=== PATIENT | female | born 1980 | race Caucasian/White ===

== ENCOUNTER 2019-07-04 05:33 | Inpatient (IN) | payer BC ==
[~2019-07-04 05:33] MED LIST: Buffered Lidocaine 1% SYRIN* 1 ML/SYRINGE INTRADERM ONE
[2019-07-04] MEDS ORDERED: Lactated Ringers 1000 ML Bag* 1,000 ML IV SCH (06:00)
[2019-07-04] MEDS ORDERED: Famotidine IV* 10 MG/ML 2 ML (20 mg) IV ONE (06:00)
[2019-07-04] MEDS ORDERED: Gabapentin CAP(*) 300 MG PO ONE (06:00)
[2019-07-04] MEDS ORDERED: Acetaminophen TAB* 325 MG PO ONE (06:00)
[2019-07-04] MEDS ORDERED: ceFAZolin 2 GM PREMIX in ORs 2 GM/50 ML BAG ONE (06:17)
[2019-07-04] MEDS ORDERED: Acetaminophen TAB* 325 MG ONE (06:17)
[2019-07-04] MEDS ORDERED: Gabapentin CAP(*) 300 MG ONE (06:17)
[2019-07-04] MEDS ORDERED: Buffered Lidocaine 1% SYRIN* 1 ML/SYRINGE INTRADERM ONE (06:18)
[2019-07-04] MEDS ORDERED: Famotidine IV* 10 MG/ML 2 ML (20 mg) ONE (06:18)
[2019-07-04] MEDS ORDERED: Bacitracin INJECTION* 50,000 UNITS ONE (06:40)
[2019-07-04] MEDS ORDERED: Thrombin 5,000 UNITS* 1 APPLIC KIT - topical use - TOPICAL ONE (06:40)
[2019-07-04] MEDS ORDERED: Bupivacaine 0.25% EPI 200,000* 30 ML SDV ONE (06:40)
[2019-07-04] MEDS ORDERED: Artificial Tear OPHTH.OINT* 3.5 GM ONE (07:09)
[2019-07-04] MEDS ORDERED: Propofol* 500 MG/50 ML BTL ONE ×2 (07:12→09:17)
[2019-07-04] MEDS ORDERED: Propofol* 10 MG/ML 20 ML BTL ONE (07:12)
[2019-07-04] MEDS ORDERED: Dexamethasone IV* 4 MG/ML 1 ML (4 MG) ONE ×2 (07:12→08:10)
[2019-07-04] MEDS ORDERED: Ondansetron INJ* 2 MG/ML VIAL ONE (07:12)
[2019-07-04] MEDS ORDERED: Lidocaine 2% PF * 5 ML VIAL ONE (07:12)
[2019-07-04] MEDS ORDERED: Phenylephrine 10 MG/ML VIAL* 1 ML VIAL ONE (07:12)
[2019-07-04] MEDS ORDERED: Sodium Chloride 0.9%* 10 ML ONE (07:12)
[2019-07-04] MEDS ORDERED: KETAMINE HCL* 50 MG/ML 10 ML VIAL ONE (07:13)
[2019-07-04] MEDS ORDERED: Cisatracurium* 2 MG/ML MDV 5 ML ONE (07:13)
[2019-07-04] MEDS ORDERED: fentaNYL* 50 MCG/ML 2 ML VIAL (100 MCG VIAL) ONE ×3 (07:13→11:45)
[2019-07-04] MEDS ORDERED: Midazolam* 1 MG/ML 10 ML VIAL (10 MG) ONE (07:14)
[2019-07-04] MEDS ORDERED: Remifentanil* 2 MG VIAL ONE ×3 (07:14→10:38)
[2019-07-04] MEDS ORDERED: Naloxone* 0.4 MG/ML 1 ML VIAL IV PRN (11:24)
[2019-07-04] MEDS ORDERED: Ondansetron INJ* 2 MG/ML VIAL IV PRN (11:24)
[2019-07-04] MEDS ORDERED: fentaNYL* 50 MCG/ML 5 ML VIAL (250 MCG VIAL) ONE (12:19)
[2019-07-04] MEDS: fentaNYL* 50 MCG/ML 2 ML VIAL (100 MCG VIAL) IV PRN ×3 (12:22→12:40)
[2019-07-04] MEDS: Lactated Ringers 1000 ML Bag* 1,000 ML IV SCH (13:24)
[2019-07-04] MEDS: HYDROcodone/ACETAMIN 5-325 MG* 1 TAB PO PRN ×2 (14:24→18:23)
--- NOTE | 2019-07-04 18:08 | OP ---
DATE OF OPERATION: 07/04/19 - ROOM #340 DATE OF : 78 SURGEON: Berta Pantoja MD [employer] ATTENDANT: YRIS Montilla. The case was done with the assistance of surgical PA because of the complexity of the case. ANESTHESIA: General. PRE-OP DIAGNOSES: 1. Degenerative disk disease. 2. Herniated nucleus pulposus. 3. Myelopathy. POST-OP DIAGNOSES: 1. Degenerative disk disease. 2. Herniated nucleus pulposus. 3. Myelopathy. OPERATIVE PROCEDURE: The patient underwent anterior cervical diskectomy and fusion at C5-6 and C6-7 with PEEK interbody cage, DBX, autologous local bone graft, plate and screws with intraoperative monitoring. ESTIMATED BLOOD LOSS: 20 cc. COMPLICATIONS: None. SUMMARY: The patient is a very pleasant 39-year-old female with complaints of neck pain radiating to mostly the right upper extremity, signs of myelopathy, and MRI findings consistent with a very large rightward C6-7 disk herniation and a smaller rightward disk herniation at right C5-6. The patient after failing conservative treatment modalities was offered the option of surgical intervention in the form of anterior cervical diskectomy and fusion. After explaining the expectations, limitations, and possible complications to the patient and also the patient's significant other with complications including, but not limited to bleeding, infection, risk of injury to adjacent structures, coma, paralysis, , need for additional procedures, anesthesia risks, stroke , blindness, cancer, instability, hardware failure, adjacent level disease, pseudo-arthrosis, recurrent laryngeal nerve injury, Genesis syndrome, need for tracheostomy or gastrostomy; the patient was agreeable to proceed with surgery and informed consent was obtained. The patient understood that her condition may not improve and in fact may get worse after surgery and that she may require additional procedures in the future. She also understood that the goal of the surgery is to stabilize her condition and her myelopathy may not improve. She also understood that operative plan may be modified according to intraoperative findings and conditions and that the procedure may be abandoned or done in more than 1 stage. She also understood that she may require prolonged hospitalization, prolonged ICU stay, gastrostomy or tracheostomy, or prolonged rehabilitation. DESCRIPTION OF PROCEDURE: The patient was brought to the operating room and was placed under general anesthesia by the anesthesia team. She was carefully positioned supine on the Adan table and all bony prominences were meticulously padded. Her skin was prepped and draped in the standard fashion. After appropriate surgical pause and patient identification, a small transverse incision towards the right side at the level of C6 vertebral body was marked on the skin with the assistance of intraoperative fluoroscopic imaging. The skin was infiltrated with local anesthetic and #10 surgical blade was used to incise the skin. The incision was carried deeply with Bovie cautery and the skin was undermined with tenotomy scissors. Self-retaining retractors were introduced into the field and the platysma muscle was gently elevated and divided with sharp dissection. The medial border of the sternocleidomastoid was then identified and plane between the medial border of the sternocleidomastoid as well as the medial structures was gently developed with sharp and blunt dissection. The prevertebral fascia was identified and was gently dissected and the anterior part of the vertebral bodies was exposed. Intraoperative fluoroscopic imaging confirmed appropriate surgical levels and Hamill pins were placed at the C5, C6, and C7 vertebral bodies. Self-retaining retractors were introduced into the field and a diskectomy was performed at C6-7 level after incising the annulus fibrosus with #15 surgical blade. The diskectomy was carried out with a series of pituitary rongeurs, Kerrison punches, curettes, and high-speed drill. A significant amount of disk herniation was identified as excepted from preoperative monitoring. Under microscopic magnification, the fragments of the disk were gently removed relieving the pressure on the thecal sac and at the end of the diskectomy, the thecal sac and the foramina were found to be free of any pressure phenomenon. After copious irrigation, confirmation of meticulous hemostasis and meticulous inspection, an 8- mm PEEK interbody cage was inserted after being filled with locally harvested bone graft during the diskectomy part of the procedure as well as DBX. The Hamill pin was removed from the C7 vertebral body and the retractors were repositioned to perform a diskectomy at the C5-6 level. Every time that the self-retaining retractors were introduced into the field, the Apfelbaum maneuver was performed. The diskectomy was carried out as well as preparation of the disk space and another 8-mm PEEK interbody cage filled with locally harvested bone graft and DBX was inserted. The Hamill pins were then removed and a 37-mm [employer] anterior plate was secured in place with 13-mm screws. Intraoperative fluoroscopic imaging confirmed excellent placement of all hardware. After copious irrigation, confirmation of meticulous hemostasis and meticulous inspection, the self-retaining retractors were removed from the field and the wound was closed by layers. 2-0 interrupted Vicryl sutures were used to approximate the platysma and the subcutaneous tissues while the skin was approximated with 4-0 subcutaneous suture. The skin was then covered with Dermabond and sterile sponges. At the end of the procedure, all counts were reported to be correct. The patient remained hemodynamically stable throughout the case. Intraoperative electrophysiological monitoring remained stable throughout the case. The patient was then extubated and was transferred to Recovery in excellent condition. The case was done with the assistance of surgical PA because of the complexity of the case. [id number]/[facility] #: [id number] RASHEEDA
[2019-07-04] MEDS ORDERED: oxyCODONE/Acetamin 5/325 MG* TAB PO PRN (21:07)
[2019-07-04] MEDS: oxyCODONE/Acetamin 5/325 MG* TAB PO PRN (21:35)
[2019-07-05] MEDS: Lactated Ringers 1000 ML Bag* 1,000 ML IV SCH (02:33)
[2019-07-05] MEDS: oxyCODONE/Acetamin 5/325 MG* TAB PO PRN ×2 (02:36→07:44)
[2019-07-05 07:19] VITALS: BP 128/82
--- NOTE | 2019-07-05 10:50 | PN ---
Progress Note - Progress Note Date of Service: 07/05/19 SOAP: Subjective: [] 39 y/o female post ACDF of C5/C6, C6/C7 POD #1 patient did well over night. Has some post surgical pain, her pain meds were switched from Hydrocdone to Percocet, which gave her relief. The other source of pain was coming form [place] J collar, which was too larger for her. She had collar that was fitted for her before surgery that was at bed side, but ended up with another one. Overall she has been stable, has tolerated orals without any issue. Patient has been ambulating over night independently and voiding with out issue. She reports that her radicular pain has resolved since surgery and feels strength has improved. 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 Wound: C/D/I Assessment: [] 39 y/o female post ACDF C5/C6,C6/C7 has been stable over night, doing well, will possible discharge home today. Plan: [] 1) Follow up Cervical spine X rays 2) Discharge home.
--- NOTE | 2019-07-06 14:50 | DS ---
DISCHARGE SUMMARY: DATE OF ADMISSION: 07/04/19 DATE OF DISCHARGE: 07/05/19 ATTENDNG PROVIDER: Dr. Pantoja * (DICTATED BY YRIS RICCI) DIAGNOSES ON ADMISSION: 1. Degenerative disk disease. 2. Herniated nucleus pulposus 3. Myelopathy. POSTOP DIAGNOSES: 1. Degenerative disk disease. 2. Herniated nucleus pulposus. 3. Myelopathy. DISPOSITION ON DISCHARGE: Good. PLACE OF DISCHARGE: Home. HOSPITAL COURSE: This patient is a very pleasant 39-year-old female with complaints of neck pain radiating mostly to the right upper extremity, signs of myelopathy. On MRI, findings are consistent with a very large rightward C6-C7 disk herniation and a small rightward disk herniation at C5-C6. The patient after failing conservative treatment modalities was offered the option of surgical intervention in the form of anterior cervical diskectomy and fusion. After explaining the expectations, limitations, and possible complication to the patient and also significant other, the patient was consented for surgery. On 07/04/19, the patient underwent ACDF of C5-C6 and C6-C7, tolerated the procedure well, was admitted to surgical short stay unit for 23-hour observation. The patient was able to tolerate orals and swallow without any issue, was ambulating independently, voiding without any issues as well. The patient had some pain overnight which was better managed with changing her pain medication from hydrocodone 10/325 to Percocet 10/325. Also the patient had a fitted collar that was given to her prior to surgery. She after surgery had a collar that was too big for her, so the custom collar was replaced, pain was improved. The patient was discharged home with instructions of no bending, no twisting, no driving. Avoid pools and hot tubs. Follow with primary care in 1 week. Follow with Neurosurgery in 1 week as well. The patient was prescribed pain medications, sent to our pharmacy. She understood the instructions and was discharged home. Thank you for allowing me to be a part of this patient's health care. YRIS RICCI [id number]/[facility] #: [id number] [facility] HOSPITALJayden
== END 2019-07-05 11:30 | disposition home or self-care (01) | DRG 321 ==
LOC: OR 05:33 → SSU 12:08 → OBSVTOIN 12:09
PROVIDERS: ADMIT Neurological Surgery; ATTEND Neurological Surgery
PROC: 0RG20A0 Fusion of 2 or more Cervical Vertebral Joints with Interbody Fusion Device, Anterior Approach, Anterior Column, Open Approach (ICD-10-PCS; principal; 2019-07-04 07:30)
DX: M50.022 Cervical disc disorder at C5-C6 level with myelopathy (principal); M47.12 Other spondylosis with myelopathy, cervical region; F17.200 Nicotine dependence, unspecified, uncomplicated; M50.10 Cervical disc disorder with radiculopathy, unspecified cervical region; M47.22 Other spondylosis with radiculopathy, cervical region; Z98.51 Tubal ligation status; Z91.030 Bee allergy status
CPT/HCPCS: 72040; 76000; A9270-GY; C1713; C1776; C9359; J0690; J1100; J2250; J2405; J2704; J3010